=== PATIENT | male | born 1945 | race Caucasian/White ===

== ENCOUNTER 2018-09-20 19:32 | Inpatient (IN) | payer MEDICARE ==
[~2018-09-20] VITALS: Ht 182.9 cm; Wt 79.4 kg
[2018-09-20] MEDS ORDERED: Penlac6.6 ML TOP (19:55)
[2018-09-20] MEDS ORDERED: MEMA5TAB PO (19:56)
[2018-09-20] MEDS ORDERED: ESCI5 PO (19:56)
[2018-09-20] MEDS ORDERED: SIMV40 PO (19:56)
[2018-09-20] MEDS ORDERED: TAMS.4ER PO (19:57)
[2018-09-20] MEDS ORDERED: ASPI81CH PO (21:22)
[2018-09-20] MEDS ORDERED: THERA1 EACH PO (21:23)
[2018-09-20 22:39] LABS: Hematocrit 38.9 % (37.0-53.0); Hemoglobin 12.7 g/dL (13.5-17.5); Mean Corpuscular HGB 32.2 pg (26.0-34.0); Mean Corpuscular HGB Conc 32.6 g/dL (31.5-36.5); Mean Corpuscular Volume 99 fL (80-100); Mean Platelet Volume 9.1 fL (9.1-12.4); Platelet Count 178 K/mm3 (150-400); RDW Coefficient Variation 13.6 % (11.7-14.2); RDW Standard Deviation 50.1 fL (35.1-46.3); Red Blood Cell Count 3.94 M/mm3 (4.30-5.90)
[2018-09-20 22:53] LABS: International Normalized Ratio 1.03; Prothrombin Time Results 10.9 Sec (9.7-11.5)
[2018-09-20 22:58] LABS: BAND PERCENT MAN 2 % (0-8); BASOPHILS ABSOLUTE MAN 0.14 K/mm3 (0.00-0.23); BASOPHILS PERCENT MAN 2 % (0-2); EOSINOPHILS ABSOLUTE MAN 0.28 K/mm3 (0.00-0.68); EOSINOPHILS PERCENT MAN 4 % (0-6); LYMPHOCYTES ABSOLUTE MAN 1.65 K/mm3 (0.84-5.20); LYMPHOCYTES PERCENT MAN 23 % (21-46); MONOCYTES ABSOLUTE MAN 0.28 K/mm3 (0.16-1.47); MONOCYTES PERCENT MAN 4 % (4-13); NEUTROPHILS ABSOLUTE MAN 4.82 K/mm3 (1.96-9.15); SEG NEUTROPHILS PERCENT MAN 65 % (41-73); TOTAL CELLS COUNTED 100
[2018-09-21 02:42] LABS: Source, Urine Clean Catch
[2018-09-21 02:45] LABS: Bilirubin, Urine Neg (Neg); Blood, Urine 2+ (Neg); Glucose Qualitative, Urine Neg (Neg); Ketones, Urine Neg (Neg); Leukocyte Esterase, Urine Neg (Neg); Nitrite, Urine Neg (Neg); Protein, Urine 2+ (Neg); Specific Gravity, Urine 1.015 (1.003-1.022); Urobilinogen, Urine NORM (Normal); pH, Urine 6.5 (5.0-8.0)
[2018-09-21 02:46] LABS: Appearance, Urine Clear (Clear); Color, Urine Yellow (P-Yellow)
[2018-09-21 02:56] LABS: Bacteria Not Seen /hpf; Red Blood Cells, Urine 0-2 /hpf (0-2); Squamous Epithelial Cells Rare /hpf (Few); White Blood Cells, Urine Not Seen /hpf (0-5)
--- NOTE | 2018-09-21 02:58 | NUR ---
LATE ENTRY ARRIVAL 2250 RECEIVED REPORT FROM ED RN. ARRIVED TO THE MEDICAL UNIT VIA WHEELCHAIR. 2P ASSIST FOR TRANSFER AND GETTING SITUATED INTO BED. EXPLAINED TO PATIENT THAT THERE WAS A PROCESS OF QUESTIONS THAT WE NEEDED TO GO THROUGH. PATIENT STATED THAT HE WAS TIRED, BUT AGREEABLE. WENT OVER CALL SYSTEM AND LIGHTS. EXPLAINED PURPOSE OF SCD's AND THAT HE WOULD BE RECEIVING IV FLUIDS; AGREEABLE ONCE AGAIN. VSS/AFEBRILE. NO PAIN/DISCOMFORT AT THIS TIME. BED IN LOWEST POSITION. ALARM ON. CALL LIGHT AND BELONGINGS WITHIN REACH. WCTM.
--- NOTE | 2018-09-21 03:25 | NUR ---
LATE ENTRY 0235 PATIENT REQUESTING TO BE UN-PLUGGED FROM HIS TREATMENT. EDUCATED PATIENT ON THE REASON WHY WE CANNOT JUST "UN-PLUG" HIM FROM THE IV. WENT OVER HIS CONCERNS ABOUT BEING CONNECTED. ASSURED HIM THAT THE DOCTOR ORDERED THE IV FLUIDS FOR A REASON AND BECAUSE IT IS A DOCTORS ORDER; IT CANNOT JUST BE STOPPED. EXPRESSED CONCERN THAT HE MIGHT CONSIDER TRYING TO GET SOME REST OTHERWISE HE MIGHT HAVE A REALLY LONG DAY TODAY.
--- NOTE | 2018-09-21 04:56 | NUR ---
LATE ENTRY 0345 TRANSFER OF PATIENT CARE TO [facility]. PATIENT TRANSFERED FROM ROOM 302 TO 345 VIA W/C. 1P ASSIST TO BED FROM W/C. VS PRIOR TO TRANFER WNL.
[2018-09-21 05:08] LABS: Alanine Aminotransfer (ALT/SGP 30 U/L (12-78); Albumin, Blood 3.4 g/dL (3.4-5.0); Albumin/Globulin Ratio 0.9 (0.8-1.8); Alk Phos 61 U/L (50-136); Anion Gap 7 mmol/L (6-16); Aspartate Aminotrans (AST/SGOT 22 U/L (12-37); Bilirubin, Total 1.4 mg/dL (0.1-1.0); Blood Urea Nitrogen 14 mg/dL (8-24); Bun/Creatinine Ratio 15.5 (12.0-20.0); CO2, Blood 28 mmol/L (21-32); Calcium, Blood 8.4 mg/dL (8.5-10.1); Chloride, Blood 102 mmol/L (98-108); Globulin, Blood 3.9 g/dL (2.2-4.0); Glomerular Filtration Rate >60 (60-); Glucose, Blood 78 mg/dL (70-99); Potassium, Blood 3.8 mmol/L (3.5-5.5); Sodium, Blood 137 mmol/L (136-145); Total Protein, Blood 7.3 g/dL (6.4-8.2)
--- NOTE | 2018-09-21 05:44 | NUR ---
SHIFT SUMMARY ASSUMED CARE OF PT AT APPROXIMATELY 0345 THIS AM. PT TRANSFERRED TO SPECIAL CARE UNIT FOR REPORTS OF CONFUSION WITH HX OF DEMENTIA. PT ADMITTED FOR DIVERTICULITIS. DNR. FULL LIQUID DIET BUT NPO AFTER MIDNIGHT THIS NIGHT FOR SURGICAL CONSULT TODAY WITH DR. BARCENAS FOR ACUTE DIVERTICULITIS. SCDS. TELE-NSR WITH PACS AT A RATE OF 70 PER TELE [facility]. 20G IV TO R AC INFUSING NS AT 75 MLS/HR. 1 PERSON ASSIST WITH TRANSFER TO [facility] [place]. [facility] AFTER A [facility] SCAN OF THE ABD WAS COMPLETED AND NOTED ACUTE DIVERTICULITIS WITH ABSCESS FORMATION. THE PT LIVES AT HOME WITH HIS [place]. THE PT ALERT AND ORIENTED X4 FOR THIS NURSE. THE PT ABLE TO STATE NAME, , WHERE HE IS, WHY HE IS HERE. THE PT ABLE TO STATE COMING FROM [place] AND LEAVING PHONE IN CARE THAT IS AT THE [place] BECAUSE BROUGHT TO ED BY EMS. THE PT DID PLACE A CALL TO HIS , LEFT A MESSAGE WITH ROOM NUMBBER AND ROOM PHONE NUMBER. THE PT RETURNED A CALL TO AND SPOKE WITH HER. THE PT IS CURRENTLY RESTING IN BED. APPEARS TO BE RESTING COMFORTABLY WITH NO APPARENT SIGNS OF ACUTE DISTRESS. FREQUENT VISUAL CHECKS IT DOES NOT APPEAR THAT PT USES CALL LIGHT. ENCOURAGE PT TO USE CALL LIGHT AND WAIT FOR ASSIST. PT VERBALIZED UNDERSTANDING.
--- NOTE | 2018-09-21 08:56 | NUR ---
PATIENT DID NOT EAT BREAKFAST THIS SHIFT DUE TO BEING NPO AT THIS TIME FOR A PROCEDURE.
--- NOTE | 2018-09-21 16:07 | NUR ---
Initial Visit: Palliative Care Consult for AD/POLST. Pt is A&Ox2. He is orientated to self and year. Pt denies pain and dyspnea at this time. Pt appears comfortable. Pt states "you can let me out of here". Intructed Pt this decision will be made by the doctor. Spoke with Pt's bedside nurse Dru and she reports no concerns at this time. Called and spoke with Pt's Madisyn to address concerns and goals of care. Listened as Madisyn explained [facility] time but Pt was not tolerating having them in his home. Madisyn discussed knowing about option of placing Pt in assisted living for respite for up to one month. Madisyn explains this conversation was discussed with Pt and Pt was adamant against this idea. Educated Madisyn on the disease process and the importance of self care with high risk caregiver fatigue. Suggested to revist the option of having caregivers back into the home. Madisyn reports that she will consider this at a later time. Madisyn reports having advanced directive and POA and will bring in for hospital records. Madisyn requests to have hospitalist call her with an update and plan. No other concerns reported at this time. This RN wrote on Pt's white board with request for Dr Caraballo to call Madisyn with update and plan. Palliative Care will remain available.
--- NOTE | 2018-09-21 18:26 | NUR ---
SUMMARY- PT ALERT TO SELF, FORGETFUL- MULTIPLE ATTEMPTS TO GET OOB UNASSISTED DESPITE NURMEROUS REMINDERS. PULLED OUT 2 IV'S. IVF RUNNING ALL DAY. VERNA CONSULTED FOR GI DIVER/[facility]- NO SG FOR NOW. STARTED PT ON CLEARS. VSS, AFIBRILE, DENIED PAIN ALL DAY.
--- NOTE | 2018-09-22 06:43 | NUR ---
Rn Summary: Patient is alert but forgetful. Pt states he has poor short term memory. Pt up to BSC several times at beginning of shift to void, one med loose stool. Pt does wait for assist to get up, he is unsteady on his feet. Pt takes pills whole with water. Pt rested fairly well during the night. Call light in reach. Denies abdominal pain. Hopes to be discharged soon.
--- NOTE | 2018-09-22 10:55 | NUR ---
CALLED DR GILLESPIE REGARDING THE POSSIBLITY OF DISCHARGING PT, PER DR REYNA REQUEST, DR GILLESPIE IS OK TO SEND PT HOME WITH 2 WEEKS OF PO ANTIBIOTICS. DR REYNA NOTIFED.
[2018-09-22] MEDS ORDERED: Vsl#3 Capsule1 EACH PO (11:33)
[2018-09-22] MEDS ORDERED: LEVFLO500 PO (11:34)
[2018-09-22] MEDS ORDERED: METR500 PO (11:36)
--- NOTE | 2018-09-22 15:56 | NUR ---
DISCHARGE SUMMARY PT A&Ox3. IRRITABLE AT TIMES, COOPERATIVE WITH CARE. PT RESTING IN BED DURING SHIFT, UP SBA. PT IMPULSIVE AT TIMES. PT DENIES PAIN, SOB AND N/V DURING SHIFT. PT RECEIVING IV ANTIBIOTICS. PT ADVANCED TO REGULAR DIET, APPEARS TO BE TOLERATING. PT CONTINUES TO HAVE DIARRHEA, PT REPORTS IT IS CHRONIC. VSS. NO OTHER ACUTE CHANGES NOTED DURING SHIFT. PT AND SPOUSE EDUCATED ON DISCHARGE INSTRUCTIONS, MEDICATIONS AND FOLLOW UP APPOINTMENTS. PRESCRIPTION FAXED TO [place] IN [place] PER PT REQUEST. PT LEFT ROOM VIA WHEELCHAIR AT 1339. PT STABLE UPON DISCHARGE.
== END 2018-09-22 13:47 | disposition home or self-care (01) | DRG 392 ==
LOC: ER 19:32 → MEDS 22:00 → ENPENDDIS 09-22 11:18 → MEDS 09-22 13:47
PROVIDERS: Nurse Practitioner Acute Care; ADMIT Internal Medicine
DX: K57.20 Diverticulitis of large intestine with perforation and abscess without bleeding (principal); F03.90 Unspecified dementia, unspecified severity, without behavioral disturbance, psychotic disturbance, mood disturbance, and anxiety; J44.9 Chronic obstructive pulmonary disease, unspecified; N40.0 Benign prostatic hyperplasia without lower urinary tract symptoms; I71.4 Abdominal aortic aneurysm, without rupture; F32.9 Major depressive disorder, single episode, unspecified; Z79.82 Long term (current) use of aspirin; Z66 Do not resuscitate; Z85.118 Personal history of other malignant neoplasm of bronchus and lung
CPT/HCPCS: 36415; 80053; 81001; 82565; 83735; 85007; 85027; 85610; 96360; 99285-25; C9113; J2543; J7030